=== PATIENT | male | born 1965 | race Caucasian/White ===

== ENCOUNTER → 2017-10-04 | Day surgery (SDC) | payer OTHER ==
[2017-10-02 08:45] VITALS: BMI 26.0
[~2017-10-04] VITALS: Ht 177.8 cm; Wt 84.1 kg
[~2017-10-04] MED LIST: CYAN100020 PO; LIDOCAINE HCL 2% 2 ML VIAL (20MG/ML) ONE; PROPOFOL IV EMULSION 10 MG/ML 20 ML VIAL ONE; SODIUM CHLORIDE 0.9% 500ML 500 ML IV ONE
[2017-10-04 12:06] VITALS: Ht 177.8 cm; Wt 84.1 kg
--- NOTE | 2017-10-04 12:14 | Endo History and Physical ---
History & Physical Date of Service: Oct 04, 2017. Chief Complaint: COLONIC ADENOMA Referring Physician: DR. PRITCHARD History of Present Illness 52 yo CM who presents for colonoscopy secondary to history of colon polyps. Past Surgical History Hx Cardiac Surgery: No Hx Internal Defibrillator: No Hx Pacemaker: No Hx Abdominal Surgery: No Hx of Implantable Prosthesis: No Hx Post-Op Nausea and Vomiting: No Hx Cancer Surgery: No Hx Thoracic Surgery: No Hx Orthopedic: No Hx Urinary Tract Surgery: No Family History Colon CA Social History Smoking Status: Never Smoker Hx Substance Use: No Hx Alcohol Use: Yes (OCCASIONALLY) Allergies Coded Allergies: NO KNOWN DRUG ALLERGIES (Verified Allergy, Unknown, ., 10/04/17) Current Medications Reported Home Medications Medications Dose Route/Sig Max Daily Dose Days Date Category Dose Instructions Vitamin B12 (Cyanocobalamin) 1,000 Mcg Tab 1 Tab PO DAILY 10/02/17 Reported "IF REMEMBERS" Vital Signs Weight (Kilograms): 84.09 Height (Feet): 5 Height (Inches): 10 Date Time Temp Pulse Resp B/P (MAP) Pulse Ox O2 Delivery O2 Flow Rate FiO2 10/04/17 11:32 36.4 86 18 153/94 (113) 95 Room Air Physical Exam General Appearance: WD/WN, no apparent distress Respiratory/Chest: Auscultation: breath sounds normal Cardiovascular: Heart Auscultation: RRR Abdomen: Bowel Sounds: normal Inspection & Palpation: soft, non-distended, no tenderness, guarding & rebound Assessment and Plan Assessment: 52 yo CM who presents for colonoscopy secondary to history of colon polyps. Plan: Proceed with colonoscopy.
--- NOTE | 2017-10-04 13:09 | Discharge Instructions ---
Endoscopy Patient Instructions Date / Procedure(s) Performed Oct 04, 2017. Colonoscopy Allergy Information Coded Allergies: NO KNOWN DRUG ALLERGIES (Verified Allergy, Unknown, ., 10/04/17) Discharge Date / Findings Oct 04, 2017. Colon polyps Diverticulosis Internal hemorrhoids Medication Instructions OK to resume all medications today as prescribed Reported Home Medications Medications Dose Route/Sig Max Daily Dose Days Date Category Dose Instructions Vitamin B12 (Cyanocobalamin) 1,000 Mcg Tab 1 Tab PO DAILY 10/02/17 Reported "IF REMEMBERS" Provider Instructions Activity Restrictions - No exercising or heavy lifting for 24 hours. - Do not drink alcohol the day of the procedure. - Do not drive a car or operate machinery until the day after the procedure. - Do not make any important decisions or sign important papers in 24 hours after the procedure. Following Day: - Return to full activity which may include returning to work/school. Diet Start your diet with liquids and light foods (jello, soup, juice, toast). Then eat your usual diet if not nauseated. Treatment For Common After Affects For mild abdominal pain, bloating, or excessive gas: - Rest - Eat lightly - Lie on right side Follow-Up Information Follow-up with DR. PRITCHARD as scheduled Anesthesia Information What You Should Know You have had a procedure that required some medicine to reduce anxiety and discomfort. This treatment is called moderate sedation. After receiving the treatment, you may be sleepy, but you will be able to breathe on your own. The effects of the treatment may last for several hours. Follow these instructions along with Activity/Diet recommendations noted above: * Do NOT do anything where dizziness or clumsiness would be dangerous. * Rest quietly at home today, then you can be up and about tomorrow. * Have a responsible person stay with you the rest of today. * You may have had an I.V. today. If so, you may take the dressing off later today. Recommendations Call your doctor if: * Trouble breathing * Continuous vomiting for more than 24 hours * Temperature above 101 degrees * Severe abdominal pain or bloating * Pain not relieved by pain medicine ordered * There is increased drainage or redness from any incision * A large amount of rectal bleeding greater than 2-3 tablespoons. (If you had a polyp/s removed or have hemorrhoids, a small amount of blood - from the rectum is to be expected.) * You have any unanswered questions or concerns. IN THE EVENT OF A SERIOUS EMERGENCY, GO TO THE NEAREST EMERGENCY ROOM Your discharge instructions were prepared by provider Jeremiah Burk. Patient Instructions Signature Page Julio Barillas Patient (or Guardian) Signature/Date: I have read and understand the instructions given to me by my caregivers. Caregiver/RN/Doctor Signature/Date: The above-named patient and/or guardian has received patient instructions on this date. + Original Patient Signature Page (only) stays with chart. Please make copy for patient.
--- NOTE | 2017-10-04 13:21 | GI REPORT ---
Patient Name: Julio Barillas Procedure Date: 10/04/2017 12:24 PM Date of : 1965 Admit Type: Outpatient Age: 52 Gender: Male Attending MD: Jeremiah Burk DO Procedure: Colonoscopy Providers: Jeremiah Burk DO Referring MD: Manas Riley Indications: High risk colon cancer surveillance: Personal history of colonic polyps Medicines: Monitored Anesthesia Care Complications: No immediate complications. Estimated Blood Loss: Estimated blood loss: none. Procedure: Pre-Anesthesia Assessment: - Prior to the procedure, a History and Physical was performed, and patient medications and allergies were reviewed. The patient's tolerance of previous anesthesia was also reviewed. The risks and benefits of the procedure and the sedation options and risks were discussed with the patient. All questions were answered, and informed consent was obtained. Prior Anticoagulants: The patient has taken no previous anticoagulant or antiplatelet agents. ASA Grade Assessment: I - A normal, healthy patient. After reviewing the risks and benefits, the patient was deemed in satisfactory condition to undergo the procedure. After I obtained informed consent, the scope was passed under direct vision. Throughout the procedure, the patient's blood pressure, pulse, and oxygen saturations were monitored continuously. The Scope was introduced through the anus and advanced to the terminal ileum. The colonoscopy was performed without difficulty. The patient tolerated the procedure well. The quality of the bowel preparation was good. The terminal ileum, ileocecal valve, appendiceal orifice, and rectum were photographed. Findings: The perianal and digital rectal examinations were normal. Two flat polyps were found in the ascending colon and cecum. The polyps were 5 to 7 mm in size. These polyps were removed with a hot snare. Resection and retrieval were complete. A 3 mm polyp was found in the ascending colon. The polyp was sessile. The polyp was removed with a cold biopsy forceps. Resection and retrieval were complete. Multiple small-mouthed diverticula were found in the sigmoid colon. Non-bleeding internal hemorrhoids were found during retroflexion. The hemorrhoids were small. Impression: - Two 5 to 7 mm polyps in the ascending colon and in the cecum, removed with a hot snare. Resected and retrieved. - One 3 mm polyp in the ascending colon, removed with a cold biopsy forceps. Resected and retrieved. - Diverticulosis in the sigmoid colon. - Non-bleeding internal hemorrhoids. Recommendation: - Resume previous diet. - Continue present medications. - Await pathology results. - Return to primary care physician as previously scheduled. Jeremiah Burk, DO 10/04/2017 1:21:15 PM This report has been signed electronically. Note Initiated On: 10/04/2017 12:24 PM Number of Addenda: 0 I attest to the content of the Intraoperative Record and orders documented therein, exceptions below {[id number]}
--- NOTE | 2017-10-04 13:34 | Anesthesiology Progress Note ---
Anesthesia Post Op Note Date & Time Oct 04, 2017 at 13:33 Vital Signs Pain Intensity: 0 Vital Signs Past 12 Hours Date Time Temp Pulse Resp B/P (MAP) Pulse Ox O2 Delivery O2 Flow Rate FiO2 10/04/17 13:07 72 20 118/73 (88) 95 Room Air 10/04/17 11:32 36.4 86 18 153/94 (113) 95 Room Air Notes Mental Status: alert / awake / arousable, participated in evaluation Pt Amnestic to Procedure: Yes Nausea / Vomiting: adequately controlled Pain: adequately controlled Airway Patency, RR, SpO2: stable & adequate BP & HR: stable & adequate Hydration State: stable & adequate Anesthetic Complications: no major complications apparent
[2017-10-04 13:37] VITALS: BP 144/91; PULSE 74; O2SAT 98
== END | disposition home or self-care (01) ==
LOC: C.GI 10:59
PROVIDERS: ATTEND Internal Medicine
DX: Z12.11 Encounter for screening for malignant neoplasm of colon (principal); Z86.010 Personal history of colon polyps; D12.0 Benign neoplasm of cecum; D12.2 Benign neoplasm of ascending colon; Z80.0 Family history of malignant neoplasm of digestive organs; K57.30 Diverticulosis of large intestine without perforation or abscess without bleeding; K64.8 Other hemorrhoids

== ENCOUNTER 2018-03-04 05:44 | Inpatient (IN) ==
--- NOTE | 2018-02-10 10:36 | Anesthesiology Consultation ---
Date of Service February 10, 2018 Assessment & Plan (1) Encounter for pre-operative examination: Chart Review Chart Review: Acceptable Risk for Surgery and Patient seen in Pre Admission Testing Teaching & Discussion Instructed NPO after midnight before surgery, except medications with 15 cc of water. Medication instructions provided according to the PAT guidelines. History Surgery Operation Date: 03/04/18 07:30 Proposed Procedures p Robotic Laparoscopic Prostatectomy - Jose Ace MD Height/Weight Height: 5 ft 10 in Weight: 88.6 kg Allergies Allergy/AdvReac Type Severity Reaction Status Date / Time No Known Drug Allergies Allergy Unknown . Verified 01/01/18 09:29 Medications Home Medications Medication Instructions Recorded Confirmed Last Taken fluticasone [Flonase Allergy 1 spray INTRANASAL DAILY 02/10/18 02/10/18 Unknown Relief] Past Medical History Medical History History of elevated PSA (Chronic) Cancer positive bx Dizziness 02/04/2018 patient reports several episodes when at rest--PCP seen 02/07 feels r/t eustacian tube dysfunction, prescribed Flonase Environmental allergies Past Family History Family History Mother No problems noted. Father , Passed age 83 of unknown metastatic cancer Prostate cancer Age 76 Grandmother , Maternal Passed in late 60's of brain CA No problems noted. Grandfather , Maternal - Passed in 70's of unknown CA (supervisor dairy sanitation) No problems noted. Brother Colon cancer Diagnosed age 55 of Colon CA, now currently metastatic to bone Brother Non-Hodgkin lymphoma Age 24 at diagnosis (alive and well now) Brother No problems noted. Sister No problems noted. Sister No problems noted. Sister No problems noted. Sister Tongue cancer Diagnosed age 60 - now alive and well Son No problems noted. Daughter No problems noted. Past Surgical History Surgical History Hx of colonoscopy several Past Anesthesia History No Hx of Anesthesia Complications (GA naive) and No Family Hx of Anesthesia Complications History of PONV No Motion Sickness Screening History of Motion Sickness: Yes Social History Smoking Status: Never smoker Do You Dip or Chew Tobacco: No Hx Alcohol Use: Yes alcohol intake frequency: holidays/special occasions only Hx Substance Use: No Exercise / Class Metabolic Activity II 4-5 Yardwork/Stairs/Walk up hill (no CP or SOB with stairs, does daily) Review of Systems Pt denies any recent chest pain, shortness of breath, palpitations, cough, fever or URI. Physical Exam Vital Signs BP: 148/93 P: 65 SPO2: 96% RA T: 97.9 F 1R: ENMT Mouth: no chipped teeth and no loose teeth Thyromental Distance: > or= 3.5 Finger Breadths (4) Mallampati Class: II Neck normal visual inspection and + facial hair (short brooks and mustache); neck extension not limited Respiratory normal respiratory effort Auscultation: lungs clear to auscultation bilaterally Cardiovascular Rate/Rhythm: regular rate and regular rhythm Heart Sounds: no murmur Vessels: no carotid bruit Extremities: no edema Testing Electrocardiogram Date: 02/10/18 Findings: + NSR @ (65) Chest X-Ray Date: 02/10/18 Findings: + NAD Laboratory Results 02/10/18 10:49 02/10/18 10:49 Blood Type O Positive 02/10/18 10:49 Antibody Screen NEGATIVE 02/10/18 10:49 Urine Color Yellow 02/10/18 Unknown Urine Appearance Clear (Clear) 02/10/18 Unknown Urine pH 7.0 (4.5-7.5) 02/10/18 Unknown Ur Specific Rescue 1.008 (1.000-1.030) 02/10/18 Unknown Urine Protein Negative (Negative) 02/10/18 Unknown Urine Glucose (UA) Negative (Negative) 02/10/18 Unknown Urine Ketones Negative (Negative) 02/10/18 Unknown Urine Nitrite Negative (Negative) 02/10/18 Unknown Ur Leukocyte Esterase Negative (Negative) 02/10/18 Unknown
--- NOTE | 2018-02-10 11:30 | XRay Report ---
XR chest Pre-admission PA/Lat HISTORY: 52 years-old Male pat preoperative exam. No acute chest complaints COMPARISON: None available TECHNIQUE: PA and lateral views of the chest FINDINGS: Cardiomediastinal and hilar silhouettes are within normal limits. Mild hyperinflation with chronic fl attening. No pneumothorax, pleural effusion, focal airspace consolidation or overt pulmonary edema. Bones of the chest appear grossly intact. IMPRESSION: No acute process. The above report was generated using voice recognition software. It may contain grammatical, syntax o r spelling errors. Electronically signed by: Gustabo Carrizales M.D. 02/10/2018 11:29 AM
[2018-02-10 11:45] LABS: Basophils # (auto) 0.02 K/uL (0-0.2); Basophils % (auto) 0.3 %; Eosinophils # (auto) 0.15 K/uL (0-0.5); Eosinophils % (auto) 2.2 %; Hematocrit (blood only) 44.1 % (42-52); Hemoglobin 15.6 g/dL (14.0-18.0); Immature Granulocytes # (auto) 0.01 K/uL (0.00-0.02); Immature Granulocytes % (auto) 0.1 %; Lymphocytes # (auto) 2.12 K/uL (1.2-3.4); Lymphocytes % (auto) 31.3 %; Mean Corpuscular Hgb Conc 35.4 g/dL (32-36); Mean Corpuscular Volume 84.5 fL (80-100); Mean Platelet Volume 9.3 fL (7.4-10.4); Monocytes # (auto) 0.34 K/uL (0.11-0.59); Neutrophils # (auto) 4.13 K/uL (1.4-6.5); Neutrophils % (auto) 61.1 %; Platelet Count 141 K/uL (130-400); RDW Coefficient of Variation 12.8 % (11.5-14.5); RDW Standard Deviation 39.2 fL (36.4-46.3); Red Blood Count 5.22 M/uL (4.7-6.1); White Blood Count 6.77 K/uL (4.8-10.8)
[2018-02-10 11:53] LABS: Creatinine Clr Calc Pharmacy 101.9 ml/min; Est GFR (African American) 106.9; Est GFR (Non-African American) 92.2; Potassium 3.9 mmol/L (3.5-5.1)
[2018-02-10 12:02] LABS: Appearance Urine Clear (Clear); Bilirubin Urine Negative (Negative); Color Urine Yellow; Glucose Urine UA Negative (Negative); Ketones Urine Negative (Negative); Leukocyte Esterase Urine Negative (Negative); Nitrite Urine Negative (Negative); Protein Urine Negative (Negative); Specific Gravity Urine 1.008 (1.000-1.030); Urobilinogen Urine Negative (Negative)
[2018-03-04] MEDS ORDERED: LR 15ML/HR IV SCH (06:00)
[2018-03-04] MEDS ORDERED: HEPARIN SOD 5,000 UNIT/0.5 ML VIAL SQ SCH (06:00)
[2018-03-04] MEDS ORDERED: cefOXitin 2,000 MG in DEXTROSE 5% 50 ML IV SCH (06:00)
[2018-03-04] MEDS ORDERED: BUPIVACAINE/EPINEPHRINE 0.5% MPF 1:200,000 30 ML VIAL ONE (07:01)
[2018-03-04] MEDS ORDERED: NEOSTIGMINE METHYLSULFATE 5 MG/5 ML SYR ONE (07:08)
[2018-03-04] MEDS ORDERED: DEXAMETHASONE SOD INJ 4 MG/ML VIAL ONE (07:08)
[2018-03-04] MEDS ORDERED: PHENYLEPHRINE HCL 10 MG/ML VIAL ONE (07:08)
[2018-03-04] MEDS ORDERED: PROPOFOL IV EMULSION 10 MG/ML 20 ML VIAL IV ONE (07:08)
[2018-03-04] MEDS ORDERED: LIDOCAINE HCL 2% 2 ML VIAL/AMP(20MG/ML) INFIL ONE (07:08)
[2018-03-04] MEDS ORDERED: GLYCOPYRROLATE 0.2 MG/ML VIAL ONE (07:08)
[2018-03-04] MEDS ORDERED: SUCCINYLCHOLINE CHLORIDE 20 MG/ML 10 ML VIAL ONE (07:08)
[2018-03-04] MEDS ORDERED: ONDANSETRON INJ 2 MG/ML 2 ML VIAL ONE ×2 (07:08→11:55)
[2018-03-04] MEDS ORDERED: ePHEDrine sulfate 50 MG/ML AMP ONE (07:08)
[2018-03-04] MEDS ORDERED: MIDAZOLAM HCL 1 MG/ML 2ML VIAL ONE (07:10)
[2018-03-04] MEDS ORDERED: fentaNYL citrate 100 MCG/2 ML VIAL ONE ×2 (07:10→10:59)
--- NOTE | 2018-03-04 07:24 | History & Physical Bridge Note ---
Date of Service March 04, 2018 History & Physical Bridge Note I have examined the patient, reviewed the History & Physical and in the interval since the performance of the History & Physical I have noted the following changes of clinical significance: no changes noted
[2018-03-04] MEDS ORDERED: ePHEDrine sulfate 50 MG/ML AMP IV PRN (07:42)
[2018-03-04] MEDS ORDERED: HYDROmorphone INJ 2 MG/ML SYR/VIAL IV PRN (07:42)
[2018-03-04] MEDS ORDERED: ATROPINE SULFATE 0.1 MG/ML 10ML SYR IV PRN (07:42)
[2018-03-04] MEDS ORDERED: BUPIVACAINE 0.5 % 5 MG/1 ML MPF 30ML VIAL ONE (07:51)
[2018-03-04] MEDS ORDERED: BELLADONNA/OPIUM SUPP 60 MG SUPP PR ONE (07:59)
[2018-03-04] MEDS ORDERED: HYDROmorphone INJ 2 MG/ML SYR/VIAL ONE (08:26)
[2018-03-04] MEDS ORDERED: ACETAMINOPHEN 1000 MG/100 ML IV IV ONE (09:13)
[2018-03-04] MEDS ORDERED: FLOSEAL HEMOSTATIC MATRIX 5ML TOP ONE (10:29)
--- NOTE | 2018-03-04 11:37 | Operative Report ---
Post Operative Report Pre & Post Diagnosis Operation Date: 03/04/18 07:30 Pre-Op Diagnosis: Prostate Cancer Post-Op Diagnosis: Prostate Cancer Procedure Operation Date: 03/04/18 07:30 Actual Procedures p Robotic Assisted Laparoscopic Prostatectomy with Pelvic Lymph Node Dissection( Not Applicable) - Jose Ace MD Description of procedure: The patient was identified in the preoperative holding area, appropriate informed consents were reviewed and completed, and he was transported to the operating suite. Subcutaneous heparin was administered in the pre-operative holding area. Upon arrival in the operating suite, he received appropriate antibiotics and general anesthesia. He was positioned in dorsal lithotomy, a B&O suppository was inserted after digital rectal exam, and he was prepped and draped in standard fashion. A Lakhani catheter was inserted in the sterile field. A Veress needle was passed per umbilicus with uniform insufflation of the abdomen to 15mmHg. He was placed in steep Trendelenburg position. A periumbilical incision was then made to accommodate a 12mm Visiport with 10mm 0degree laparoscope. Inspection of the abdomen was carried out, and there was no evidence of traumatic entry or injury secondary to the Veress needle. After confirming a clear anterior abdominal wall, ports were subsequently placed in standard robotic prostatectomy fashion without incident. To begin the robotic portion of the case, the left lateral aspect of the sigmoid was mobilized off of the left pelvic side wall to allow the pouch of Alen to be appropriately visualized. I then made an incision in the pouch of Alen, overlying the seminal vesicles. Both SVs as well as the ampullae of the vasa were entirely dissected , with the vasa transected 3cm from the prostate. The medial umbilical ligaments were then controlled with bipolar electrocautery just inferior to the umbilicus. Following cauterization, they were divided utilizing monopolar cautery. A peritoneal incision was carried from this location to the medial aspect of the internal inguinal rings bilaterally with care to avoid opening through the ring. This incision was concluded when the vas deferens was reached. Dissection of the bladder and prostate off of the posterior aspect of the pubic arch was completed allowing full visualization of the prostate. The fat overlying the prostate was removed en bloc and passed off the table as a specimen labeled "periprostatic fat". The endopelvic fascia was cleared during this portion of the procedure, and subsequently opened - first on the right and then the left. The incision through the endopelvic fascia began near the prostate-bladder junction and was carried to the apex with extreme care to preserve all lateral levator musculature as well as the periurethral musculature and sphincter complex. The puboprostatic ligaments were thinned slightly bilaterally before placing a 0-Vicryl figure of 8 stitch around the DVC. The lymph node dissection was then conducted. External iliac vessels were identified on the pelvic side wall. The packet of fat and lymphatic tissue that resides just under the iliac vein was elevated and off of the vein with a split and roll technique. The packet was dissected laterally to the circumflex vein and distally to the obturator nerve which was preserved. The proximal aspect of the packet was carried towards the bifurcation of the iliac vessels. A combination of monopolar and bipolar cautery were used to assist with control. Clips were placed at the proximal and distal aspects of the packet prior to transection. After completing the dissection on both sides, the packets were collected and passed off of the table as specimens labeled "pelvic lymph nodes". My attention then returned to the prostate, with identification of the bladder neck aided by gentle traction on the Lakhani catheter and lateral to medial pressure at the presumed level of the bladder neck with the robotic instruments. An anterior cystotomy was made, the Lakhani balloon deflated and the catheter guided through the incision to allow anterior retraction. I attempted to preserve maximal bladder neck musculature as I circumferentially dissected around the bladder neck. After incision through the posterior aspect of the mucosa, the dissection was carried through detrusor muscle until the bilateral ampullae of the vasa were identified. The previously dissected vasa and SVs were brought through the incision and used to elevated the prostate anteriorly. A posterior plane behind the prostate was then developed - splitting Denonvilliers's fascia. This dissection was carried as far as possible towards the apex as well as far as possible laterally. An incision in the lateral prostatic fascia was then made bilaterally to facilitate control of the vascular pedicles. The pedicles were each controlled with a series of Weck clips. The neurovascular bundles were identified and preserved. The apical attachments of the prostate were remaining at that stage. The DVC was divided with bipolar electrocautery. Madeline-prostatic tissue incised with sharp dissection and monopolar cautery. Maximal urethral length was preserved before dividing the urethra sharply. The prostate was entirely freed at that point, and collected in an EndoCatch bag before being moved out of the field of vision. Hemostasis was confirmed and anastomosis of the bladder and urethra was completed utilizing a double armed V- Lock stitch. A new Lakhani catheter was inserted and the anastomosis tested with irrigation. There was no evidence of leak. FloSeal coagulant was placed around the anastomosis. A Apple style stitch was used to marsupialize some peritoneum against the area dissected for lymph nodes utilizing a 0 Vicryl stitch. The robot was undocked, the specimen extracted through expansion of the madeline- umbilical camera port. The fascia was closed with a series of 0-PDS figure of 8 stitches. The right pharmacist assistant port was closed in two layers - with a figure of 8 0-Vicryl to reapproximate the fascia followed by 4-0 Monocryl to close the skin. Monocryl was used to close all other skin incisions. All wounds were dressed with Dermabond. The case was concluded and the patient taken to the PACU in stable condition. Surgeon Jose Ace MD [employer] Supervisor DEEPIKA Morrow Estimated Blood Loss 100 Findings Consistent with Post-Op Diagnosis Specimens 1. Periprostatic fat #2 prostate and seminal vesicles #3 left pelvic lymph nodes #4 right pelvic lymph nodes I attest to the content of the Intraoperative Record and any orders documented therein. Any exceptions are noted below.
[2018-03-04] MEDS ORDERED: LARYING-O-JET KIT (LTA) ONE (11:55)
[2018-03-04] MEDS ORDERED: ROCURONIUM BROMIDE 10 MG/ML 5 ML VIAL ONE (11:55)
[2018-03-04 12:04] LABS: Basophils # (auto) 0.01 K/uL (0-0.2); Basophils % (auto) 0.1 %; Eosinophils # (auto) 0.03 K/uL (0-0.5); Eosinophils % (auto) 0.3 %; Hematocrit (blood only) 44.5 % (42-52); Hemoglobin 15.5 g/dL (14.0-18.0); Immature Granulocytes # (auto) 0.02 K/uL (0.00-0.02); Immature Granulocytes % (auto) 0.2 %; Lymphocytes % (auto) 17.6 %; Mean Corpuscular Volume 84.6 fL (80-100); Mean Platelet Volume 9.2 fL (7.4-10.4); Monocytes # (auto) 0.09 K/uL (0.11-0.59); Monocytes % (auto) 0.8 %; Neutrophils # (auto) 8.75 K/uL (1.4-6.5); Platelet Count 168 K/uL (130-400); RDW Coefficient of Variation 12.7 % (11.5-14.5); RDW Standard Deviation 38.7 fL (36.4-46.3); Red Blood Count 5.26 M/uL (4.7-6.1)
[2018-03-04 12:10] LABS: Mean Corpuscular Hgb Conc 34.8 g/dL (32-36)
[2018-03-04 12:23] LABS: BUN Creatinine Ratio 9.6 (10-20); Calcium 8.7 mg/dl (8.5-10.1); Creatinine Clr Calc Pharmacy 71.1 ml/min; Est GFR (African American) 76.4; Potassium 4.2 mmol/L (3.5-5.1)
--- NOTE | 2018-03-04 12:35 | Anesthesiology Progress Note ---
Date of Service March 04, 2018 Anesthesia Post Procedure Vital Signs Vital Signs: Temp Pulse Pulse Resp BP Pulse Ox 03/04/18 12:25 36.2 C L 93 H 14 126/85 96 03/04/18 12:15 96 H 14 140/88 99 03/04/18 12:05 95 H 10 L 160/96 H 100 03/04/18 11:55 104 H 12 152/81 H 98 03/04/18 11:46 36.4 C L 89 12 143/78 H 100 03/04/18 06:15 36.9 C 98 H 18 141/94 H 98 Pain Intensity Abdomen: Pain Intensity: 0 Notes Mental Status: alert / awake / arousable Patient Amnestic to Procedure: Yes Nausea / Vomiting: adequately controlled Pain: adequately controlled Airway Patency, RR, SpO2: stable & adequate BP & HR: stable & adequate Hydration State: stable & adequate Anesthetic Complications: no major complications apparent and Pt Satisfied with anesthetic care
[2018-03-04] MEDS ORDERED: OXYCODONE HCL IR 5 MG TAB (IMMEDIATE RELEASE) PO PRN ×2 (13:29)
[2018-03-04] MEDS ORDERED: MoRPHine SULFATE 10 MG/ML CARP/VIAL IV PRN (13:29)
[2018-03-04] MEDS ORDERED: ONDANSETRON INJ 2 MG/ML 2 ML VIAL IV PRN (13:29)
[2018-03-04 13:56] LABS: Prothrombin Time 10.5 Seconds (9.0-12.0)
[2018-03-04] MEDS: LACTATED RINGER'S 1,000 ML IV SCH ×2 (14:22→21:28)
[2018-03-04] MEDS: FAMOTIDINE 20 MG in SYRINGE 3 ML IV SCH ×2 (14:23→22:11)
[2018-03-04] MEDS: CEFAZOLIN 2000MG 2,000 MG/15 ML SYR IV SCH (15:31)
[2018-03-04] MEDS: HEPARIN SOD 5,000 UNIT/0.5 ML VIAL SQ SCH (22:12)
[2018-03-04] MEDS: DOCUSATE SODIUM 100 MG CAP PO SCH (22:15)
[2018-03-04] MEDS: ACETAMINOPHEN 1,000 MG/100 ML VIAL IV PRN (22:22)
[2018-03-05] MEDS: CEFAZOLIN 2000MG 2,000 MG/15 ML SYR IV SCH ×2 (00:10→07:39)
[2018-03-05] MEDS: LACTATED RINGER'S 1,000 ML IV SCH ×2 (05:06→14:21)
[2018-03-05 07:06] LABS: Basophils # (auto) 0.01 K/uL (0-0.2); Basophils % (auto) 0.1 %; Eosinophils # (auto) 0.02 K/uL (0-0.5); Eosinophils % (auto) 0.2 %; Hematocrit (blood only) 38.6 % (42-52); Hemoglobin 13.4 g/dL (14.0-18.0); Immature Granulocytes # (auto) 0.03 K/uL (0.00-0.02); Immature Granulocytes % (auto) 0.3 %; Lymphocytes # (auto) 1.65 K/uL (1.2-3.4); Lymphocytes % (auto) 15.7 %; Mean Corpuscular Hgb Conc 34.7 g/dL (32-36); Mean Platelet Volume 9.1 fL (7.4-10.4); Monocytes % (auto) 8.5 %; Neutrophils # (auto) 7.92 K/uL (1.4-6.5); Neutrophils % (auto) 75.2 %; Platelet Count 161 K/uL (130-400); RDW Coefficient of Variation 12.8 % (11.5-14.5); Red Blood Count 4.54 M/uL (4.7-6.1); White Blood Count 10.53 K/uL (4.8-10.8)
--- NOTE | 2018-03-05 07:34 | Urology Progress Note ---
Date of Service March 05, 2018 Assessment & Plan (1) Prostate cancer: POD#1 s/p RALP - doing very well - advance diet -HL IVF - cont ambulation - home later today Subjective Did very well overnight - urine cleared - pain controlled with tylenol - ambulated without issue - tolerating diet Physical Exam 2 Vital Signs (Past 24 Hours): Last Vital Signs Temp 36.9 C 03/05/18 03:25 Pulse 87 03/05/18 03:25 Resp 16 03/05/18 03:25 BP 115/68 03/05/18 03:25 Pulse Ox 96 03/05/18 03:25 Physical Exam: NAD AAOx3 abd soft - incisions appropriate urine clear no edema
[2018-03-05] MEDS: ACETAMINOPHEN 1,000 MG/100 ML VIAL IV PRN (07:39)
[2018-03-05 07:42] LABS: BUN Creatinine Ratio 9.7 (10-20); Calcium 8.4 mg/dl (8.5-10.1); Creatinine Clr Calc Pharmacy 86.5 ml/min; Est GFR (African American) 96.8; Est GFR (Non-African American) 83.5
[2018-03-05] MEDS ORDERED: FLUTICASONE PROPIONATE NA SPR 16 GM BTL SCH (09:00)
[2018-03-05] MEDS: HEPARIN SOD 5,000 UNIT/0.5 ML VIAL SQ SCH (09:41)
[2018-03-05] MEDS: DOCUSATE SODIUM 100 MG CAP PO SCH (09:41)
[2018-03-05] MEDS: FAMOTIDINE 20 MG in SYRINGE 3 ML IV SCH (09:41)
--- NOTE | 2018-03-05 11:08 | Anesthesiology Progress Note ---
Date of Service March 05, 2018 Anesthesia Post Procedure Vital Signs Vital Signs: Temp Pulse Pulse Pulse Resp BP BP 03/05/18 10:37 36.6 C 101 H 75 16 150/71 H 143/74 H 03/05/18 07:26 36.6 C 75 16 150/71 H 03/05/18 03:25 36.9 C 87 16 115/68 03/04/18 23:11 37.0 C 108 H 16 141/70 H 03/04/18 20:26 36.7 C 101 H 143/74 H 03/04/18 16:00 36.5 C 100 H 18 124/66 03/04/18 15:00 36.6 C 92 H 18 130/79 03/04/18 14:05 36.7 C 99 H 18 117/81 03/04/18 13:30 36.7 C 89 14 105/72 03/04/18 13:00 36.9 C 89 18 114/78 03/04/18 12:45 36.2 C L 87 14 119/80 03/04/18 12:35 36.2 C L 87 14 120/71 03/04/18 12:25 36.2 C L 93 H 14 126/85 03/04/18 12:15 96 H 14 140/88 03/04/18 12:05 95 H 10 L 160/96 H 03/04/18 11:55 104 H 12 152/81 H 03/04/18 11:46 36.4 C L 89 12 143/78 H Pulse Ox 03/05/18 10:37 92 03/05/18 07:26 92 03/05/18 03:25 96 03/04/18 23:11 93 03/04/18 20:26 92 03/04/18 16:00 95 03/04/18 15:00 94 03/04/18 14:05 97 03/04/18 13:30 97 03/04/18 13:00 96 03/04/18 12:45 96 03/04/18 12:35 96 03/04/18 12:25 96 03/04/18 12:15 99 03/04/18 12:05 100 03/04/18 11:55 98 03/04/18 11:46 100 Pain Intensity Abdomen: Pain Intensity: 4 Bilateral Testicles: Pain Intensity: 2 Notes Mental Status: alert / awake / arousable and participated in evaluation Patient Amnestic to Procedure: Yes Nausea / Vomiting: adequately controlled Pain: adequately controlled Airway Patency, RR, SpO2: stable & adequate BP & HR: stable & adequate Hydration State: stable & adequate Anesthetic Complications: no major complications apparent and Pt Satisfied with anesthetic care
--- NOTE | 2018-03-19 07:54 | Discharge Summary ---
Date of Service March 19, 2018 Admission HPI Per Admitting Provider Prostate cancerpresenting for robotic prostatectomy Principal Diagnosis Prostate cancer Discharge Data Allergies Allergy/AdvReac Type Severity Reaction Status Date / Time No Known Drug Allergies Allergy Unknown . Verified 03/04/18 05:59 Procedures Performed Operation Date: 03/04/18 07:30 Actual Procedures p Robotic Assisted Laparoscopic Prostatectomy with Pelvic Lymph Node Dissection( Not Applicable) - Jose Ace MD Hospital Course (1) Prostate cancer: Patient admitted for a robotic prostatectomy - details of the procedure as dictated previously in my operative report - in summary, he tolerated the procedure very well - he was in stable condition overnight with appropriate urine output and stable labs - he was subsequently discharged home with a segura catheter - he was in stable condition at the time of discharge Total Time Total Time Spent Total Time Spent (In Minutes): 10 Discharge Plan Discharge Items Patient Disposition: Home - Self-Care Reason For Visit: Prostate Cancer Discharge Diagnosis: prostate cancer Discharge Goals: Diagnostic testing and Improve disease control Activity: Per 'Additional Instructions' section Lifting: No more than 10 pounds Bathing Comment: Okay to shower tomorrow. Do not scrub/pick at surgical glue. No soaking. Sexual Activity: Wait until after follow-up appointment Exercise/Sports: None Exercise Comment: Walking and stairs in your home are okay. Driving/Machine Use Comment: No driving while taking narcotic pain medication. Non-emergency contact: Urologist Call non-emergency contact if: you have any medication questions, your pain is not controlled, your pain is concerning for you, your temperature is above 101, your wound has increased redness, your wound has increased drainage and your wound pain has increased Follow-up/Referrals: Manas Riley [Primary Care Provider] - Diet: Regular Addtl Provider Instructions: Keep all follow- up appointments with Dr. Ace as scheduled. Please call our office if you need to reschedule for any reason. Our office number is . Segura Care: Wash twice daily with warm, soapy water. Call us immediately if segura becomes displaced for any reason. Take stool softener (Colace) twice daily for two weeks, then as needed for constipation. Take pain medication (Oxycodone) every 6 hours as needed for moderate to severe pain. You may take tylenol as needed for mild pain. Avoid aspirin. Our office number will connect you with on-call Urologist 17/09 for concerns after hours. Of course, if you are experiencing a medical emergency we wan itz to report back to the hospital. Prescriptions: New oxycodone 5 mg capsule 5 mg PO Q6H PRN (Reason: pain) Qty: 14 RF: 0 docusate sodium [Colace] 100 mg capsule 100 mg PO BID PRN (Reason: constipation) Qty: 60 RF: 0 Continue fluticasone [Flonase Allergy Relief] 50 mcg/actuation [place],Suspension 1 spray INTRANASAL DAILY RF: 0 Visit Report Forms: My [employer] [facility] Stand-Alone Forms: My [facility], Opioid Pain Management Discharge Orders: Discharge Order (Routine); Ordered 03/05/18 Ordered By: Loly Dos Santos Admission Data Admit Date/Time: 03/04/18 11:43 Attending Provider: Jose Ace Admit Provider: Jose Ace Primary Care Provider: Manas Riley Service: Surgical Services Other Interventions: Discharge Summary Assessment (RN) Last Done: 03/05/18 10:37 DC Date/Time DO NOT enter until pt leaves facility: 03/05/18 16:17
== END 2018-03-05 16:17 | disposition home or self-care (01) | DRG 708 ==
LOC: ASU 05:44 → 3W 11:43